=== PATIENT | female | born 1935 | race Caucasian/White ===

== ENCOUNTER → 2018-12-22 | Outpatient (CLI) | payer MEDICARE ==
[~2018-12-22] MED LIST: REGADENOSON 0.4 MG/5 ML DISP.SYRIN. IV ONE
--- NOTE | 2018-12-22 15:27 | PCVCIMAG ---
APPROVED REPORT Imaging Protocol: Rest Tc-99m/Stress Tc-99m 1 day Study performed: 12/22/2018 09:16:42 Indication: Abnormal EKG, Dyspnea Patient Location: Out-Patient Stress Nurse: Wendi Zapien RN CO Tech:Rose Serratobala [facility] Ht: 5 ft 1 in Wt: 148 lbs BSA: 1.66 m2 HR: 68 bpm BP: 187/76 mmHg BMI: 27.96 Rhythm: Sinus Rhythm Medical History Medical History: HTN, Hyperlipidemia Medications: Losartan-HCTZ, Omeprazole, Pravastatin Allergies: No known drug allergies Cardiac Risk Factors: Age Pretest Chest Pain Characteristics: No chest pain Exercise History: Indeterminate Resting Data Rest SPECT myocardial perfusion imaging was performed in supine position 45 minutes following the intravenous injection of 10.5 mCi of Tc-99m Sestamibi. Time of rest injection: 914 Date: 12/22/2018 Administration Route: IV Administration Site: Right AC Pharmacologic Stress Pharmacologic stress test was performed by injecting Regadenoson 0.4 mg IV push over 10-15 seconds immediately followed by the intravenous injection of 30.7 mCi of Tc-99m Sestamibi. Time of stress injection: 1044 Date: 12/22/2018 Administration Route: IV Administration Site: Right AC Gated Stress SPECT was performed 45 minutes after stress injection. The images were gated to evaluate regional wall motion and calculate left ventricular ejection fraction. Stress Test Details Stress Test: Pharmacologic stress testing performed using 0.4 mg of regadenoson per 5 mL given IV over 10 seconds. Reason for pharmacologic stress test: physical [id number]. HRMax Heart Rate (APMHR): 140 bpm Resting HR: 68 bpmTarget HR (85% APMHR): 119 bpm Max HR Achieved: 107 bpm % of APMHR: 76 Recovery HR: 82 bpm BP Resting BP: 187/76 mmHg Max BP: 144/68 mmHg Recovery BP: 152/63 mmHg ECG Resting ECG: Sinus Rhythm Stress ECG: Sinus Tachycardia, nonspecific ST-T abnormalities Arrhythmia: None Recovery ECG: Sinus Rhythm,nonspecific ST-T abnormalities Clinical Reason for Termination: Completed protocol Stress Symptoms: Nausea, Dyspnea, Leg Heaviness Exercise duration: 4 min 00 sec Exercise capacity: 1.6 METs Symptoms resolved with caffeine. Stress ECG Conclusion 1. adequate response to iv lexiscan 2 inadequate heart rate for ecg diagnosis Study Data Post stress, the left ventricular ejection was 81%.. SSS: 3 SRS: 3 SDS: 1 TID = 0.56. Perfusion There is a small area of moderately reduced uptake in the apicalmid and apical segment of the inferior wall which is seen on the stress images as well as the resting images. This area thickens and moves normally and is most consistent with attenuation artifact. Wall Motion Normal left ventricular wall motion. Nuclear Conclusion ECG Findings: non-diagnostic Clinical Findings: negative for ischemia Nuclear Findings: negative for ischemia Exercise Capacity: not assessed Left Ventricular Function: normal 1. Low Risk Study 2. Post stress lvef 81% without wall motion abnormalities <Conclusion> 1. adequate response to iv lexiscan 2 inadequate heart rate for ecg diagnosis
--- NOTE | 2018-12-23 12:35 | PCVCIMAG ---
APPROVED REPORT Study performed: 12/22/2018 08:25:13 EXAM: Comprehensive 2D, Doppler, and color-flow Echocardiogram Patient Location: Echo lab Status: routine BSA: 1.66 HR: 75 bpmBP: 140/80 mmHg Rhythm: NSR Other Information Study Quality: Adequate Risk Factors: Cardiac Risk Factors: HTN, Hyperlipidemia Indications Dyspnea 2D Dimensions IVSd: 12.36 (7-11mm)LVOT Diam: 18.74 (18-24mm) LVDd: 34.13 mm PWd: 11.09 (7-11mm)Ascending Ao: 32.65 (22-36mm) LVDs: 28.65 (25-40mm) Left Atrium: 33.78 (27-40mm) Aortic Root: 27.82 mm LV Single Plane 4CH: 48.93 % LV Single Plane 2CH: 56.86 % Biplane EF: 55.0 % Volumes Left Atrial Volume (Systole) Single Plane 4CH: 36.53 mLSingle Plane 2CH: 34.60 mL LA ESV Index: 22.00 mL/m2 Aortic Valve AoV Peak Britton.: 1.64 m/s AO Peak Gr.: 10.71 mmHg AI Vmax: 4.70 m/s AI [place]: 4.32 m/s2 AI PHT: 315.86 ms Mitral Valve E/A Ratio: 0.6 MV Decel. Time: 189.37 ms MV E Max Britton.: 0.62 m/s MV A Britton.: 1.02 m/s TDI E/Lateral E': 10.33E/Medial E': 12.40 Medial E' Britton.: 0.05 m/s Lateral E' Britton.: 0.06 m/s Pulmonary Valve PV Peak Gr.: 2.73 mmHg Pulmonary Vein P Vein S: 0.54 m/sP Vein A: 0.43 m/s P Vein D: 0.27 m/sP Vein A Dur.: 121.1 msec P Vein S/D Ratio: 2.00 Tricuspid Valve TR Peak Britton.: 2.29 m/s TR Peak Gr.: 20.99 mmHg Left Ventricle The left ventricle is normal size. There is normal LV segmental wall motion. Mild concentric left ventricular hypertrophy. Left ventricular systolic function is normal. The left ventricular ejection fraction is within the normal range. LVEF is >55%. The left ventricular diastolic function is normal. Right Ventricle The right ventricle is normal size. The right ventricular systolic function is normal. Atria The left atrium size is normal. The right atrium size is normal. Aortic Valve The aortic valve is normal in structure. Mild aortic regurgitation. There is no aortic valvular stenosis. Mitral Valve The mitral valve is normal in structure. Trace to mild mitral regurgitation. No evidence of mitral valve stenosis. Tricuspid Valve The tricuspid valve is normal in structure. Trace tricuspid regurgitation. Pulmonary artery pressure is 28mmHg. Pulmonic Valve The pulmonary valve is normal in structure. There is no pulmonic valvular regurgitation. Great Vessels The aortic root is normal in size. IVC is normal in size and collapses >50% with inspiration. Pericardium There is no pericardial effusion. <Conclusion> The left ventricle is normal size. LVEF is >55%. The aortic valve is normal in structure. Mild aortic regurgitation. The mitral valve is normal in structure. Trace to mild mitral regurgitation. The tricuspid valve is normal in structure. Trace tricuspid regurgitation. Pulmonary artery pressure is 28mmHg. The pulmonary valve is normal in structure. There is no pulmonic valvular regurgitation. There is no pericardial effusion.
== END | disposition home or self-care (01) ==
LOC: PCVCIMAG 08:12
PROVIDERS: ATTEND Internal Medicine
DX: R94.31 Abnormal electrocardiogram [ECG] [EKG] (principal); R06.09 Other forms of dyspnea; E78.5 Hyperlipidemia, unspecified; I10 Essential (primary) hypertension
CPT/HCPCS: 78452; 93017; 93306; A9500; J2785